=== PATIENT | male | born 2000 | race Two or more races ===

== ENCOUNTER 2023-07-11 13:49 | Emergency (ER) | payer OTHER ==
[~2023-07-11] VITALS: Ht 167.6 cm; Wt 66.2 kg
[2023-07-11 16:25] LABS: HEMATOCRIT 48.2 % (39.0-48.0); HEMOGLOBIN 16.5 g/dL (13-16.00); MEAN CELL VOLUME 77.9 fL (80.0-100.00); MEAN CORPUSCULAR HEMOGLOBIN 26.7 pg (27.00-32.0); MEAN CORPUSCULAR HGB CONC 34.3 g/dl (32.0-36.0); PLATELET COUNT 244 K/uL (150-450); RED BLOOD COUNT 6.19 M/uL (4.00-6.00); RED CELL DISTRIBUTION WIDTH 13.9 % (11.5-14.5)
[2023-07-11 16:43] LABS: CALCIUM 9.7 mg/dL (8.5-10.1); CREATININE SERUM 1.07 mg/dL (0.70-1.30); GFR 84.2; POTASSIUM 3.81 mEq/L (3.5-5.1)
== END 2023-07-11 21:10 | disposition home or self-care (01) ==
LOC: ER 13:49
PROVIDERS: General Practice
DX: K52.89 Other specified noninfective gastroenteritis and colitis (principal); E86.0 Dehydration; Z91.013 Allergy to seafood